=== PATIENT | female | born 1980 | race Caucasian/White ===

== ENCOUNTER 2019-06-12 10:10 | Day surgery (SDC) | payer OTHER ==
[~2019-06-12 10:10] MED LIST: CLONAZEPAM1 M1 PO
== END 2019-06-13 00:50 | disposition home or self-care (01) ==
LOC: CIR.AMB 10:10
PROVIDERS: Plastic Surgery
PROC: 0HBV0ZZ Excision of Bilateral Breast, Open Approach (ICD-10-PCS; principal; 2019-06-12 07:00)
DX: N62 Hypertrophy of breast (principal)